=== PATIENT | female | born 1985 | race Caucasian/White ===

== ENCOUNTER → 2017-11-11 | Outpatient (CLI) | payer OTHER ==
[~2017-11-11] MED LIST: ALBU8.5H IH
--- NOTE | 2017-11-11 15:56 | RADIOLOGY IMAGING REPORT ---
[place] [facility] [place] Selina Phillip : 1985 MR: [id number] V: [id number] EXAM DATE: ORDERING PHYSICIAN: MALISSA ACOSTA TECHNOLOGIST: Location: [facility] Patient: Selina Phillip : 1985 Visit/Account:[id number] Date of Sevice: 11/11/2017 Exam type: CHEST PA AND LAT History: Copy, shortness of breath, chest discomfort Comparison: None. Findings: There is mild peribronchial thickening bilaterally. There is no evidence of focal infiltrates, pleur al effusions or pulmonary edema. No evidence of pneumothorax or pneumomediastinum. IMPRESSION: 1. Mild peribronchial thickening bilaterally which could be related to an acute peribronchial inflam matory process Report Dictated By: Trish Lou MD at 11/11/2017 3:49 PM Report E-Signed By: Trish Lou MD at 11/11/2017 3:51 PM WSN:[email or web address]
== END ==
LOC: RAD 15:15
PROVIDERS: ATTEND Nurse Practitioner Primary Care
DX: R91.8 Other nonspecific abnormal finding of lung field (principal); R05 Cough
CPT/HCPCS: 36415; 71046; 85379; 87631